=== PATIENT | female | born 1950 | race Caucasian/White ===

== ENCOUNTER → 2017-01-11 | Outpatient (CLI) | payer MEDICARE ==
[2017-01-11 13:52] LABS: Basophils % (A) 0 %; CH 34.4; CHCM 33.5; Eosinophils % (A) 0 %; HCT 40.8 % (34.0-46.0); HDW 2.02; HGB 13.2 gm/dL (11.4-16.0); Luc # (Auto) 0.14; Luc % (Auto) 2; Lymphocytes # (A) 2.4 k/uL (1.0-4.8); Lymphocytes % (A) 30 %; MCH 33.3 pg (25.0-35.0); MCHC 32.3 g/dL (31.0-37.0); MCV 103.1 fL (80.0-100.0); Macrocytosis Slight; Mean Platelet Volume 7.8; Monocytes # (A) 0.5 k/uL (0-1.0); Monocytes % (A) 6 %; Neutrophils % (A) 62 %; RBC 3.96 m/uL (3.80-5.40); RDW 13.1 % (11.5-15.5); WBC (Perox) 7.82
== END | disposition home or self-care (01) ==
LOC: LABWHC1 12:28
PROVIDERS: ATTEND Allergy & Immunology
DX: R22.0 Localized swelling, mass and lump, head (principal)
CPT/HCPCS: 36415; 85025; 86160; 86161

== ENCOUNTER 2019-01-03 14:55 | Emergency (ER) | payer MEDICARE, OTHER ==
--- NOTE | 2019-01-03 16:38 | US ---
EXAMINATION TYPE: US venous doppler duplex LE RT DATE OF EXAM: 01/03/2019 4:32 PM COMPARISON: NONE CLINICAL HISTORY: Pain. No hx of blood clots. No blood thinners. Ankle swelling x one month. SIDE PERFORMED: Right TECHNIQUE: The lower extremity deep venous system is examined utilizing real time linear array sonog ernst with graded compression, doppler sonography and color-flow sonography. VESSELS IMAGED: External Iliac Vein (EIV) Common Femoral Vein Deep Femoral Vein Greater Saphenous Vein * Femoral Vein Popliteal Vein Small Saphenous Vein * Proximal Calf Veins (* superficial vessels) Right Leg: Negative for DVT IMPRESSION: No evidence of deep venous thrombosis in the right leg.
[2019-01-03 16:48] LABS: Basophils # (A) 0.1 k/uL (0-0.2); Basophils % (A) 1 %; Eosinophils # (A) 0.2 k/uL (0-0.7); Eosinophils % (A) 2 %; HCT 36.4 % (34.0-46.0); Lymphocytes # (A) 2.5 k/uL (1.0-4.8); Lymphocytes % (A) 30 %; MCH 31.5 pg (25.0-35.0); MCHC 33.1 g/dL (31.0-37.0); MCV 95.3 fL (80.0-100.0); Mean Platelet Volume 6.9; Monocytes # (A) 0.5 k/uL (0-1.0); Monocytes % (A) 6 %; Neutrophils % (A) 60 %; Platelet Count 383 k/uL (150-450); RBC 3.82 m/uL (3.80-5.40); RDW 12.6 % (11.5-15.5); WBC 8.3 k/uL (3.8-10.6)
[2019-01-03 16:59] LABS: ALT 24 U/L (9-52); AST 29 U/L (14-36); African American GFR (CKD) >90 (>60 ml/min/1.73 sqM); Albumin 3.7 g/dL (3.5-5.0); Alkaline Phosphatase 122 U/L (38-126); Anion Gap 12 mmol/L; Blood Urea Nitrogen 18 mg/dL (7-17); Calcium 10.2 mg/dL (8.4-10.2); Carbon Dioxide 26 mmol/L (22-30); Chloride 104 mmol/L (98-107); Glucose 95 mg/dL (74-99); Potassium 4.1 mmol/L (3.5-5.1); Sodium 142 mmol/L (137-145); Total Bilirubin 0.2 mg/dL (0.2-1.3); Total Protein 7.4 g/dL (6.3-8.2)
--- NOTE | 2019-01-03 17:04 | ED ---
Lower Extremity Injury HPI - General Chief Complaint: Extremity Injury, Lower Stated Complaint: R Swollen Leg Time Seen by Provider: 01/03/19 15:31 Source: patient Mode of arrival: wheelchair Limitations: no limitations - History of Present Illness Initial Comments: Patient is a 68-year-old female presenting to the emergency Department with complaints of swelling in her right lower extremity that has been increasing over the last week. Patient states she has been having swelling for approximately a month in the right leg but the last week to 3 days has been increasing. Patient also noticed some mild redness to her right foot. Patient denies any trauma to her right leg. Patient denies any recent travel. Patient states she had an ultrasound performed of her right lower leg approximately a month ago that revealed no abnormalities. Patient has been doing elevation to the leg without improvement. Patient has no other complaints at this time. Vital signs are stable upon arrival. - Related Data Home Medications Medication Instructions Recorded Confirmed Aspirin 325 mg PO DAILY 12/15/16 12/15/16 [place]-3 Fatty Acids/Fish Oil [Fish 1 each PO DAILY 12/15/16 12/15/16 Oil 1,000 mg Softgel] predniSONE 20 mg PO DAILY 12/15/16 12/15/16 Allergies Allergy/AdvReac Type Severity Reaction Status Date / Time atorvastatin [From Lipitor] Allergy Anaphylaxis Verified 12/15/16 11:23 furosemide [From Lasix] Allergy Anaphylaxis Verified 01/03/19 15:12 potassium Allergy Anaphylaxis Verified 01/03/19 15:12 antifungal medicine (unsure Allergy Rash/Hives Uncoded 12/15/16 11:23 of name Review of Systems ROS Statement: Those systems with pertinent positive or pertinent negative responses have been documented in the HPI. ROS Other: All systems not noted in ROS Statement are negative. Past Medical History Past Medical History: CVA/TIA, GERD/Reflux, Hyperlipidemia, Hypertension, Memory Impairment, Pneumonia Additional Past Medical History / Comment(s): Pt was in hospital 12/13/16 because of analphylactic reaction to Lipitor. States has been having reactions to a lot of the medications she was recently started on. States she still has hives from the last reaction. Had stroke August 30, "neck veins are totally pl ugged up". Hx Shingles. History of Any Multi-Drug Resistant Organisms: None Reported Past Surgical History: Appendectomy, Section Additional Past Surgical History / Comment(s): Partial Hysterectomy, D&C. Past Anesthesia/Blood Transfusion Reactions: No Reported Reaction Past Psychological History: Anxiety Smoking Status: Former smoker Past Alcohol Use History: Rare Past Drug Use History: None Reported - Past Family History Mother Family Medical History: Cancer Additional Family Medical History / Comment(s): Colon Cancer Father Family Medical History: Myocardial Infarction (PR) Additional Family Medical History / Comment(s): PR X5. Sister(s) Family Medical History: Cancer Additional Family Medical History / Comment(s): Breast cancer. General Exam - General Exam Comments Initial Comments: GENERAL: Well-appearing, well-nourished and in no acute distress. HEAD: Atraumatic, normocephalic. EYES: Pupils equal round and reactive to light, extraocular movements intact, sclera anicteric, conjunctiva are normal. ENT: TMs normal, nares patent, oropharynx clear without exudates. Moist mucous membranes. NECK: Normal range of motion, supple without lymphadenopathy or JVD. LUNGS: Breath sounds clear to auscultation bilaterally and equal. No wheezes rales or rhonchi. HEART: Regular rate and rhythm without murmurs, rubs or gallops. ABDOMEN: Soft, nontender, normoactive bowel sounds. No guarding, no rebound. No masses appreciated. : Deferred EXTREMITIES: Right lower extremity has moderate edema compared to the left. Mild erythema of the right foot. Decreased right leg range of motion secondary to fluid. No clubbing or cyanosis. Neurovascular intact. NEUROLOGICAL: Cranial nerves II through XII grossly intact. Normal speech, normal gait. PSYCH: Normal mood, normal affect. SKIN: Warm, Dry, normal turgor, no rashes or lesions noted. Limitations: no limitations Course Vital Signs 01/03/19 01/03/19 15:09 17:55 Temperature 98.1 F 98.2 F Pulse Rate 81 70 Respiratory 18 17 Rate Blood Pressure 128/88 124/74 O2 Sat by Pulse 99 98 Oximetry Medical Decision Making - Medical Decision Making Patient is a 68-year-old female presenting with right lower extremity swelling 1 month. Patient states she has been trying elevation and is not improving symptoms. Patient had ultrasound performed last month and there was no evidence of DVT. Patient presents today because the swelling has not been going down. On exam patient has swelling of her right lower extremity significant compared to the left lower extremity. Neurovascular intact. Ultrasound of the right extremity reveals no evidence of DVT. CBC, CMP are within normal limits. Discussed with patient this is most likely related to venous insufficiency. Patient is stable for discharge at this time. Patient will continue with el evation, compression socks. Patient will follow up with vascular. Return parameters were discussed with the patient she verbalized understanding. Case discussed with Dr. Ramirez. - Lab Data Result diagrams: 01/03/19 16:40 01/03/19 16:40 Lab Results 01/03/19 01/03/19 Range/Units 16:40 16:40 WBC 8.3 (3.8-10.6) k/uL RBC 3.82 (3.80-5.40) m/uL Hgb 12.0 (11.4-16.0) gm/dL Hct 36.4 (34.0-46.0) % MCV 95.3 (80.0-100.0) fL MCH 31.5 (25.0-35.0) pg MCHC 33.1 (31.0-37.0) g/dL RDW 12.6 (11.5-15.5) % Plt Count 383 (150-450) k/uL Neutrophils % 60 % Lymphocytes % 30 % Monocytes % 6 % Eosinophils % 2 % Basophils % 1 % Neutrophils # 5.0 (1.3-7.7) k/uL Lymphocytes # 2.5 (1.0-4.8) k/uL Monocytes # 0.5 (0-1.0) k/uL Eosinophils # 0.2 (0-0.7) k/uL Basophils # 0.1 (0-0.2) k/uL Sodium 142 (137-145) mmol/L Potassium 4.1 (3.5-5.1) mmol/L Chloride 104 (98-107) mmol/L Carbon Dioxide 26 (22-30) mmol/L Anion Gap 12 mmol/L BUN 18 H (7-17) mg/dL Creatinine 0.66 (0.52-1.04) mg/dL Est GFR (CKD-EPI)AfAm >90 (>60 ml/min/1.73 sqM) Est GFR (CKD-EPI)NonAf >90 (>60 ml/min/1.73 sqM) Glucose 95 (74-99) mg/dL Calcium 10.2 (8.4-10.2) mg/dL Total Bilirubin 0.2 (0.2-1.3) mg/dL AST 29 (14-36) U/L ALT 24 (9-52) U/L Alkaline Phosphatase 122 (38-126) U/L Total Protein 7.4 (6.3-8.2) g/dL Albumin 3.7 (3.5-5.0) g/dL Disposition Clinical Impression: Swelling of right lower extremity Disposition: HOME SELF-CARE Condition: Stable Instructions (If sedation given, give patient instructions): Leg Edema (ED), Venous Insufficiency (DC) Additional Instructions: Please return to the Emergency Department if symptoms worsen or any other concerns. Follow-up with vascular doctor as discussed. Use elevation and compression stockings. Is patient prescribed a controlled substance at d/c from ED?: No Referrals: Tona Calderon MD [Primary Care Provider] - 1-2 days Kingsley Resendiz DO [STAFF PHYSICIAN] - 1-2 days
[2019-01-03 18:01] VITALS: BP 124/74; PULSE 70; RESP 17; TEMP 98.2
== END 2019-01-03 18:01 | disposition home or self-care (01) ==
LOC: EC 14:55
DX: M79.89 Other specified soft tissue disorders (principal); L53.9 Erythematous condition, unspecified; R60.0 Localized edema; Z87.891 Personal history of nicotine dependence; Z88.8 Allergy status to other drugs, medicaments and biological substances; Z79.52 Long term (current) use of systemic steroids; Z79.82 Long term (current) use of aspirin; Z86.73 Personal history of transient ischemic attack (TIA), and cerebral infarction without residual deficits
CPT/HCPCS: 36415; 80053; 85025; 99284